=== PATIENT | male | born 1985 | race Two or more races ===

== ENCOUNTER 2017-10-28 13:17 | Outpatient (CLI) | payer OTHER ==
[2017-10-28] MEDS ORDERED: LIDOCAINE 1% 10 ML MDV SUBQ ONE ×3 (13:18→14:27)
[2017-10-28] MEDS ORDERED: IOTHALAMATE MEGLUMINE 50 ML VIAL ONE (13:41)
[2017-10-28] MEDS ORDERED: GADOPENTETATE DIMEGLUMINE 5 ML VIAL IVP ONE ×2 (13:42→14:27)
[2017-10-28] MEDS ORDERED: LIDOCAINE 1% 10 ML MDV ONE (13:43)
[2017-10-28] MEDS ORDERED: IOTHALAMATE MEGLUMINE 50 ML VIAL IVP ONE (14:27)
--- NOTE | 2017-10-28 15:52 | MRI Report ---
EXAM: RIGHT SHOULDER MRI ARTHROGRAM WITH CONTRAST EXAM DATE: 10/28/2017 01:30 PM. CLINICAL HISTORY: PAIN IN RIGHT SHOULDER. COMPARISON: Arthrogram single image 10/28/2017. TECHNIQUE: Multiplanar, multisequence T1-weighted and fluid-sensitive sequences of the shoulder after an arthrographic injection of dilute gadolinium, dictated under a separate exam. Other: None. FINDINGS: Acromioclavicular Region: The acromion is type II. The acromioclavicular joint is unremarkable. The c oracoacromial and coracoclavicular ligaments are intact. There is no contrast or fluid in the subacro mial/subdeltoid bursa. Glenohumeral Region: No subluxation. No loose bodies. The articular cartilage is unremarkable. The gl enohumeral ligaments and joint capsule are unremarkable. Bone Marrow: No fracture, marrow edema or bone lesions. Labrum: The labrum is unremarkable. Biceps Tendon: The long head of the biceps tendon and biceps arabella are intact. Musculature/Rotator Cuff: The subscapularis, supraspinatus, infraspinatus, and teres minor tendons ar e intact. No edema or fatty atrophy. Other: The subcutaneous tissues are unremarkable. IMPRESSION: No MRI abnormalities in the shoulder. [facility] MUSCULOSKE[facility]IOLOGY SECTION Referring Provider Line: [phone] SITE ID: [id number]
--- NOTE | 2017-10-29 09:36 | XRAY Report ---
RIGHT SHOULDER FLUOROSCOPIC ARTHROGRAM INJECTION: 10/28/2017 COMPARISON: No comparison. INDICATION: Right shoulder pain. TECHNIQUE: Total fluoroscopy time 1 minute, total images 1. Risks and benefits of the procedure were discussed and the patient desired to proceed. A standard timeout was performed, which verified the patient's name, date of , and right shoulder as the correct joint for injection. 8 mL of fluid were injected into the joint. The syringe contained 6 mL of lidocaine 1%, 6 mL normal saline, 6 mL of Con[place], and 0.1 mL gadolinium. FINDINGS--IMPRESSION: FLUOROSCOPY DEMONSTRATED CONTRAST WITHIN THE RIGHT SHOULDER JOINT. SUCCESSFUL ARTHROGRAM. THE PATIENT WAS DISCHARGED TO THE MRI SUITE. TD: 10/29/2017 09:36 [place]
== END 2017-10-28 13:18 | disposition home or self-care (01) ==
LOC: DI 13:17
PROVIDERS: ATTEND General Practice
DX: M25.511 Pain in right shoulder (principal)
CPT/HCPCS: 23350; 73222; 77002; Q9961